=== PATIENT | male | born 1935 | race African-American/Black ===

== ENCOUNTER 2018-10-26 19:03 | Emergency (ER) | payer MEDICARE, OTHER ==
[~2018-10-26] VITALS: Ht 185.4 cm; Wt 104.0 kg
[2018-10-26 20:10] LABS: BASOPHILS % 0.9 % (0.0-2.0); EOSINOPHILS % 1.8 % (0.0-5.0); HEMATOCRIT. 35.9 % (42.0-52.0); HEMOGLOBIN. 11.8 g/dL (14.0-18.0); LYMPHOCYTES % 24.5 % (20.0-50.0); MEAN CORPUSCULAR HEMOGLOBIN 31.3 pg (28.0-32.0); MEAN CORPUSCULAR VOLUME 95.5 fL (80.0-94.0); MEAN PLATELET VOLUME 8.2 fl (7.4-10.4); MONOCYTES % 9.4 % (2.0-8.0); NEUTROPHILS % 63.4 % (40.0-76.0); PLATELET 226 x1000/uL (130-400); RED BLOOD CELL COUNT 3.76 mill/uL (4.7-6.1); RED CELL DISTRIBUTION WIDTH 15.6 % (11.6-14.6)
[2018-10-26 20:17] LABS: CHLORIDE 106 mEq/L (98-107)
[2018-10-26 20:18] LABS: PROTHROMBIN TIME 10.3 sec (9.6-11.0)
[2018-10-26] MEDS ORDERED: ASPIRIN 325MG TABLET PO ONE (20:45)
[2018-10-26 23:05] VITALS: BP 154/91
== END 2018-10-26 23:34 | disposition short-term general hospital (02) ==
LOC: ER 19:03 → CANBEDREQ 10-27 05:27
DX: R53.1 Weakness (principal); R42 Dizziness and giddiness; I10 Essential (primary) hypertension
CPT/HCPCS: 36415; 71045; 82962; 84484; 93005; 99285

== ENCOUNTER 2020-04-30 11:35 | Emergency (ER) | payer OTHER ==
[~2020-04-30] VITALS: Ht 188 cm; Wt 90.0 kg
[~2020-04-30 11:35] MED LIST: ASPI-1497 MT; ATOR10TA69 PO; CLOP75TA33 PO; ENZA40CA PO; LEVE250T2 PO; METR500T MT; TAMS-11 PO
[2020-04-30 12:27] LABS: BASOPHILS % 0.9 % (0.0-2.0); EOSINOPHILS % 2.5 % (0.0-5.0); HEMATOCRIT. 35.3 % (42.0-52.0); HEMOGLOBIN. 11.5 g/dL (14.0-18.0); MEAN CORPUSCULAR HEMOGLOBIN 31.8 pg (28.0-32.0); MEAN CORPUSCULAR VOLUME 97.3 fL (80.0-94.0); MEAN PLATELET VOLUME 7.2 fl (7.4-10.4); MONOCYTES % 11.7 % (2.0-8.0); NEUTROPHILS % 60.9 % (40.0-76.0); PLATELET 189 x1000/uL (130-400); RED BLOOD CELL COUNT 3.63 mill/uL (4.7-6.1); RED CELL DISTRIBUTION WIDTH 21.9 % (11.6-14.6)
[2020-04-30 12:35] LABS: CHLORIDE 109 mEq/L (98-107)
[2020-04-30] MEDS ORDERED: ACETAMINOPHEN WITH CODEINE 300/30MG TABLET PO ONE (14:15)
[2020-04-30 16:11] LABS: CLARITY URINE CLEAR (CLEAR); COLOR URINE YELLOW (YELLOW); KETONES URINE NEGATIVE (NEGATIVE); LEUKOCYTE ESTERASE URINE NEGATIVE (NEGATIVE); NITRITE URINE NEGATIVE (NEGATIVE); OCCULT BLOOD URINE NEGATIVE (NEGATIVE); PH URINE 6.5 (4.5-8.0); PROTEIN URINE NEGATIVE (NEGATIVE); SPECIFIC GRAVITY URINE 1.014 (1.005-1.030); UROBILINOGEN URINE 0.2 E.U./dL (0.2-1.0)
[2020-04-30 22:35] VITALS: BP 134/63
== END 2020-04-30 23:00 | disposition left against medical advice (07) ==
LOC: ER 11:35 → EDBEDREQ 13:34 → EDBEDREQTM 13:34 → CANBEDREQ 21:33 → ER 23:00
DX: R55 Syncope and collapse (principal); R94.31 Abnormal electrocardiogram [ECG] [EKG]
CPT/HCPCS: 36415; 71045; 80053; 81003; 82962; 84484; 85025; 93005; 99285

== ENCOUNTER 2021-09-18 10:20 | Emergency (ER) | payer OTHER ==
[~2021-09-18] VITALS: Ht 182.9 cm; Wt 80.0 kg
[~2021-09-18 10:20] MED LIST changes: -METR500T MT
[2021-09-18] MEDS ORDERED: ONDANSETRON HCL 4MG/2ML INJ IV ONE (11:00)
[2021-09-18] MEDS ORDERED: MORPHINE SULFATE 10 MG/ML CPJ IM ONE (11:00)
[2021-09-18 15:15] VITALS: BP 122/57
== END 2021-09-18 16:44 | disposition home or self-care (01) ==
LOC: ER 10:20
DX: M25.511 Pain in right shoulder (principal); M25.552 Pain in left hip; M25.551 Pain in right hip; I10 Essential (primary) hypertension; G40.909 Epilepsy, unspecified, not intractable, without status epilepticus; Z85.46 Personal history of malignant neoplasm of prostate; Z98.890 Other specified postprocedural states
CPT/HCPCS: 72170; 73030; 96372; 96374; 99284; J2270; J2405